=== PATIENT | female | born 1990 | race Caucasian/White ===

== ENCOUNTER 2024-03-22 07:04 | Emergency (ER) | payer BC ==
[~2024-03-22] VITALS: Ht 170.2 cm; Wt 75.7 kg
[2024-03-22] MEDS ORDERED: PANTOPRAZOLE 40 MG VIAL ONE (07:43)
[2024-03-22] MEDS ORDERED: ONDANSETRON HCL/PF 4 MG/2 ML VIAL ONE (07:44)
[2024-03-22] MEDS ORDERED: MORPHINE SULFATE INJ 4 MG/ML DISP.SYRIN ONE (07:44)
[2024-03-22] MEDS: IV NS 0.9% 1,000 ML BAG IV ONE (07:54)
[2024-03-22] MEDS: PANTOPRAZOLE 40 MG VIAL IV ONE (07:55)
[2024-03-22] MEDS: MORPHINE SULFATE INJ 2 MG/ML DISP.SYRIN IV ONE (07:55)
[2024-03-22] MEDS: ONDANSETRON HCL/PF 4 MG/2 ML VIAL IVP ONE (07:56)
[2024-03-22 07:57] LABS: BASOPHILS # (AUTO) 0.2 K/uL (0.0-0.2); BASOPHILS % (AUTO) 0.7 % (0.0-2.0); EOSINOPHILS % (AUTO) 0.1 % (0.0-6.0); HEMATOCRIT 44 % (33-45); HEMOGLOBIN 15.1 g/dL (11.5-14.8); LYMPHOCYTES # (AUTO) 2.7 K/uL (0.8-4.8); LYMPHOCYTES % (AUTO) 12.1 % (20.0-44.0); MEAN CORPUSCULAR HEMOGLOBIN 31 PG (26.0-33.0); MEAN CORPUSCULAR HGB CONC 34 g/dl (31.0-36.0); MEAN CORPUSCULAR VOLUME 89 fL (82-100); MONOCYTES # (AUTO) 2.2 K/uL (0.1-1.30); MONOCYTES % (AUTO) 9.9 % (2.0-12.0); NEUTROPHILS # (AUTO) 17.5 K/uL (1.8-8.9); NEUTROPHILS % (AUTO) 77.2 % (43.0-81.0); PLATELET COUNT (AUTO) 438 K/uL (150-450); RED BLOOD CELL COUNT(AUTO) 4.96 MIL/uL (4.0-5.2); RED CELL DISTRIBUTION WIDTH 13.1 % (11.5-15.0); WHITE BLOOD COUNT (AUTO) 22.6 K/uL (4.3-11.0)
[2024-03-22 08:09] LABS: ALBUMIN 4.5 g/dL (3.4-5.0); BILIRUBIN,DIRECT 0.2 mg/dL (0.0-0.2); BILIRUBIN,TOTAL 0.8 mg/dL (0.2-1.0); CALCIUM, SERUM 9.8 mg/dL (8.5-10.1); CREATININE 1.1 mg/dL (0.6-1.3); TOTAL PROTEIN, SERUM 8.8 g/dL (6.4-8.2)
[2024-03-22] MEDS ORDERED: diphenhydrAMINE HCL 50 MG/ML VIAL ONE (09:05)
[2024-03-22] MEDS ORDERED: METOCLOPRAMIDE HCL 10 MG/2 ML VIAL ONE (09:06)
[2024-03-22] MEDS: diphenhydrAMINE HCL 50 MG/ML VIAL IV ONE (09:20)
[2024-03-22] MEDS: METOCLOPRAMIDE HCL 10 MG/2 ML VIAL IV ONE (09:20)
[2024-03-22] MEDS ORDERED: IOHEXOL-300 100 ML VIAL IV ONE (09:23)
[2024-03-22] MEDS ORDERED: IV PREMIX D5 1/2NS + KCL 1,000 ML IV ONE (09:38)
[2024-03-22] MEDS ORDERED: NORE-213 PO (09:42)
[2024-03-22] MEDS ORDERED: QUET300T2 PO (09:42)
[2024-03-22] MEDS ORDERED: METH-649 PO (09:42)
[2024-03-22] MEDS ORDERED: TRAZ-182 PO (09:42)
[2024-03-22] MEDS ORDERED: ESCI20TA PO (09:42)
[2024-03-22] MEDS ORDERED: CLON0.5T PO (09:42)
[2024-03-22 09:45] LABS: AMPHETAMINE, URINE NEGATIVE (NEGATIVE); BARBITURATE, URINE NEGATIVE (NEGATIVE); BENZODIAZEPINE, URINE NEGATIVE (NEGATIVE); COCCAINE, URINE NEGATIVE (NEGATIVE); PHENCYCLIDINE SCREEN,URINE NEGATIVE (NEGATIVE)
[2024-03-22 09:50] LABS: CANNABINOID, URINE POSITIVE (NEGATIVE); OPIATE, URINE POSITIVE (NEGATIVE)
[2024-03-22] MEDS: PIPERACILLIN /TAZOBACTAM 3.375 G in IV D5W 50 ML IV ONE (09:50)
[2024-03-22 09:52] LABS: APPEARANCE,URINE SLIGHTLY CLOUDY (CLEAR); BILIRUBIN,URINE 1+ (NEGATIVE); BLOOD, URINE 1+ Ery/uL (NEGATIVE); COLOR,URINE YELLOW (YELLOW); KETONES,URINE 2+ mg/dL (NEGATIVE); LEUKOCYTE ESTERASE ,URINE NEGATIVE (NEGATIVE); NITRITE, URINE NEGATIVE (NEGATIVE); PROTEIN,URINE 2+ mg/dl (NEGATIVE); UGLUCOSE NEGATIVE (NEGATIVE); UROBILINOGEN,URINE 0.2 EU/dL (0.2)
[2024-03-22 09:55] LABS: BACTERIA,URINE Few /HPF (None Seen)
[2024-03-22 09:56] LABS: MUCUS,URINE Few /LPF (None Seen); SQUAMOUS EPITHELIAL CELL,UR Many /HPF (None Seen)
[2024-03-22 09:57] LABS: ADD URINE CULTURE NO
[2024-03-22] MEDS: IV PREMIX D5 1/2NS + KCL 1,000 ML IV ONE (10:08)
[2024-03-22] MEDS ORDERED: ACETAMINOPHEN 325 MG TABLET PO PRN (12:00)
[2024-03-22] MEDS ORDERED: MAGNESIUM HYDROXIDE 30 ML UDC PO PRN (12:00)
[2024-03-22] MEDS ORDERED: METHOCARBAMOL (750MG) 750 MG TABLET PO PRN (12:00)
[2024-03-22] MEDS ORDERED: MORPHINE SULFATE INJ 2 MG/ML DISP.SYRIN IV PRN (12:00)
[2024-03-22] MEDS ORDERED: MAG HYDROX/AL HYDROX/SIMETH 30 ML UDC PO PRN (12:00)
[2024-03-22] MEDS ORDERED: clonazePAM 0.5 MG TABLET PO PRN (12:00)
[2024-03-22] MEDS ORDERED: ONDANSETRON HCL/PF 4 MG/2 ML VIAL IVP PRN (12:00)
[2024-03-22] MEDS ORDERED: IV NS 0.9% 1,000 ML IV SCH (12:00)
[2024-03-22] MEDS ORDERED: Z GUARD REMEDY 4 OZ OINT TP PRN (12:00)
[2024-03-22 16:24] VITALS: BP 120/87; TEMP 98.4; O2SAT 99
[2024-03-22] MEDS ORDERED: TRAZODONE 50 MG TABLET PO SCH (22:00)
[2024-03-22] MEDS ORDERED: QUETIAPINE FUMARATE 100 MG TABLET PO SCH (22:00)
[2024-03-22] MEDS ORDERED: ESCITALOPRAM OXALATE (10 MG) 10 MG TABLET PO SCH (22:00)
[2024-03-23] MEDS ORDERED: PANTOPRAZOLE 40 MG VIAL IV SCH (09:00)
[2024-03-23] MEDS ORDERED: NORETHINDRONE E ESTRADIOL IRON PO SCH (09:00)
== END 2024-03-22 16:25 | disposition home or self-care (01) ==
LOC: ER 07:07
DX: K85.90 Acute pancreatitis without necrosis or infection, unspecified (principal); R11.2 Nausea with vomiting, unspecified; K22.6 Gastro-esophageal laceration-hemorrhage syndrome; E87.6 Hypokalemia; F17.200 Nicotine dependence, unspecified, uncomplicated; R19.7 Diarrhea, unspecified; R30.0 Dysuria; R94.31 Abnormal electrocardiogram [ECG] [EKG]; R10.2 Pelvic and perineal pain
CPT/HCPCS: 99285; 96375; 71250; 96365; 96366; 96361; 96368; 93005; 74176; 85025; 80048; 83690; 80076; 36415; 84702; 80307; 81001; J1200; J2270; J2765; J2405; J2543; J7060; J2470; J3490; Q9967

== ENCOUNTER 2024-11-06 08:18 | Inpatient (IN) | payer BC, MEDICAID ==
[~2024-11-06] VITALS: Ht 170.2 cm; Wt 70.8 kg
[~2024-11-06 08:18] MED LIST: CLON0.5T PO; ESCI20TA PO; METH-649 PO; NORE-213 PO; QUET300T2 PO; TRAZ-182 PO
[2024-11-06] MEDS ORDERED: ONDANSETRON HCL/PF 4 MG/2 ML VIAL ONE (08:44)
[2024-11-06] MEDS ORDERED: FAMOTIDINE/PF INJ 20 MG/2 ML VIAL IV ONE (08:45)
[2024-11-06] MEDS ORDERED: MORPHINE SULFATE INJ 4 MG/ML DISP.SYRIN ONE ×2 (08:45→11:33)
[2024-11-06] MEDS: IV NS 0.9% 1,000 ML BAG IV ONE ×2 (08:49→11:36)
[2024-11-06 08:50] LABS: BASOPHILS # (AUTO) 0.1 K/uL (0.0-0.2); BASOPHILS % (AUTO) 0.7 % (0.0-2.0); HEMATOCRIT 43 % (33-45); HEMOGLOBIN 15.1 g/dL (11.5-14.8); LYMPHOCYTES # (AUTO) 2.3 K/uL (0.8-4.8); LYMPHOCYTES % (AUTO) 13.4 % (20.0-44.0); MEAN CORPUSCULAR HEMOGLOBIN 31 PG (26.0-33.0); MEAN CORPUSCULAR HGB CONC 35 g/dl (31.0-36.0); MEAN CORPUSCULAR VOLUME 89 fL (82-100); MONOCYTES # (AUTO) 1.6 K/uL (0.1-1.30); MONOCYTES % (AUTO) 9.1 % (2.0-12.0); NEUTROPHILS # (AUTO) 13.1 K/uL (1.8-8.9); NEUTROPHILS % (AUTO) 76.8 % (43.0-81.0); PLATELET COUNT (AUTO) 436 K/uL (150-450); RED BLOOD CELL COUNT(AUTO) 4.87 MIL/uL (4.0-5.2); WHITE BLOOD COUNT (AUTO) 17.1 K/uL (4.3-11.0)
[2024-11-06] MEDS: MORPHINE SULFATE INJ 2 MG/ML DISP.SYRIN IV ONE ×2 (08:50→11:37)
[2024-11-06] MEDS: ONDANSETRON HCL/PF 4 MG/2 ML VIAL IVP ONE (08:51)
[2024-11-06] MEDS: FAMOTIDINE/PF INJ 20 MG/2 ML VIAL IV ONE (08:51)
[2024-11-06 09:03] LABS: ALBUMIN 4.7 g/dL (3.4-5.0); BILIRUBIN,DIRECT 0.2 mg/dL (0.0-0.2); BILIRUBIN,TOTAL 0.9 mg/dL (0.2-1.0); CALCIUM, SERUM 9.9 mg/dL (8.5-10.1); POTASSIUM 2.9 mmol/L (3.5-5.1); TOTAL PROTEIN, SERUM 8.7 g/dL (6.4-8.2)
[2024-11-06] MEDS ORDERED: LIDOCAINE VISCOUS 2% UD 15 ML UDC ONE (11:23)
[2024-11-06] MEDS ORDERED: MAG HYDROX/AL HYDROX/SIMETH 30 ML UDC ONE (11:23)
[2024-11-06] MEDS: MAG HYDROX/AL HYDROX/SIMETH 30 ML UDC PO ONE (11:37)
[2024-11-06] MEDS: LIDOCAINE VISCOUS 2% UD 15 ML UDC MM ONE (11:37)
[2024-11-06] MEDS ORDERED: Z GUARD REMEDY 4 OZ OINT TP PRN (13:30)
[2024-11-06] MEDS ORDERED: MAG HYDROX/AL HYDROX/SIMETH 30 ML UDC PO PRN (13:30)
[2024-11-06] MEDS ORDERED: MAGNESIUM HYDROXIDE 30 ML UDC PO PRN (13:30)
[2024-11-06] MEDS ORDERED: clonazePAM 0.5 MG TABLET PO PRN (13:30)
[2024-11-06] MEDS ORDERED: ACETAMINOPHEN 325 MG TABLET PO PRN (13:30)
[2024-11-06] MEDS: POTASSIUM CL. PREMIX PERIPHER. 50 ML IV SCH (13:57)
[2024-11-06] MEDS: IV NS 0.9% 1,000 ML IV SCH (13:58)
[2024-11-06 14:00] VITALS: BP 112/72; TEMP 98.4; O2SAT 98
[2024-11-06] MEDS: MORPHINE SULFATE INJ 4 MG/ML DISP.SYRIN IV PRN (14:01)
[2024-11-06] MEDS: ONDANSETRON HCL/PF 4 MG/2 ML VIAL IVP PRN ×2 (14:37→18:47)
[2024-11-06 16:00] VITALS: BP 119/67; TEMP 97.9; O2SAT 96
[2024-11-06 21:00] VITALS: BP 110/75; TEMP 97.9; O2SAT 99
[2024-11-06] MEDS: ESCITALOPRAM OXALATE (10 MG) 10 MG TABLET PO SCH (22:17)
[2024-11-06] MEDS: QUETIAPINE FUMARATE 100 MG TABLET PO SCH (22:17)
[2024-11-06] MEDS: TRAZODONE 50 MG TABLET PO SCH (22:17)
[2024-11-07 05:00] VITALS: BP 97/61; TEMP 97.9; O2SAT 99
[2024-11-07 06:47] LABS: BASOPHILS # (AUTO) 0.1 K/uL (0.0-0.2); BASOPHILS % (AUTO) 0.7 % (0.0-2.0); EOSINOPHILS # (AUTO) 0.2 K/uL (0.0-0.7); EOSINOPHILS % (AUTO) 1.6 % (0.0-6.0); HEMATOCRIT 35 % (33-45); HEMOGLOBIN 11.9 g/dL (11.5-14.8); LYMPHOCYTES # (AUTO) 5.2 K/uL (0.8-4.8); LYMPHOCYTES % (AUTO) 49.2 % (20.0-44.0); MEAN CORPUSCULAR HEMOGLOBIN 31 PG (26.0-33.0); MEAN CORPUSCULAR HGB CONC 34 g/dl (31.0-36.0); MEAN CORPUSCULAR VOLUME 90 fL (82-100); MONOCYTES # (AUTO) 0.9 K/uL (0.1-1.30); MONOCYTES % (AUTO) 8.9 % (2.0-12.0); NEUTROPHILS # (AUTO) 4.2 K/uL (1.8-8.9); NEUTROPHILS % (AUTO) 39.6 % (43.0-81.0); PLATELET COUNT (AUTO) 297 K/uL (150-450); RED BLOOD CELL COUNT(AUTO) 3.84 MIL/uL (4.0-5.2); WHITE BLOOD COUNT (AUTO) 10.5 K/uL (4.3-11.0)
[2024-11-07 07:13] LABS: CALCIUM, SERUM 8.1 mg/dL (8.5-10.1); CREATININE 0.7 mg/dL (0.6-1.3); PHOSPHORUS 3.2 mg/dL (2.5-4.9); POTASSIUM 3.3 mmol/L (3.5-5.1)
[2024-11-07 08:11] VITALS: BP 90/55; TEMP 97.7; O2SAT 96
[2024-11-07] MEDS: POTASSIUM CL. PREMIX PERIPHER. 50 ML IV SCH (09:01)
[2024-11-07 13:00] VITALS: BP 90/55; TEMP 97.7; O2SAT 96
[2024-11-07 16:27] VITALS: BP 92/55; TEMP 97.7; O2SAT 98
[2024-11-07 21:00] VITALS: BP 114/78; TEMP 98.1; O2SAT 97
[2024-11-08 04:00] VITALS: BP 125/71; TEMP 97.9; O2SAT 98
[2024-11-08 05:01] VITALS: BP 125/71; TEMP 97.9; O2SAT 98
[2024-11-08 06:50] LABS: BASOPHILS # (AUTO) 0.1 K/uL (0.0-0.2); BASOPHILS % (AUTO) 0.7 % (0.0-2.0); EOSINOPHILS # (AUTO) 0.3 K/uL (0.0-0.7); EOSINOPHILS % (AUTO) 2.9 % (0.0-6.0); HEMATOCRIT 36 % (33-45); LYMPHOCYTES # (AUTO) 4.8 K/uL (0.8-4.8); LYMPHOCYTES % (AUTO) 48.7 % (20.0-44.0); MEAN CORPUSCULAR HEMOGLOBIN 31 PG (26.0-33.0); MEAN CORPUSCULAR HGB CONC 34 g/dl (31.0-36.0); MEAN CORPUSCULAR VOLUME 91 fL (82-100); MONOCYTES # (AUTO) 0.8 K/uL (0.1-1.30); MONOCYTES % (AUTO) 7.8 % (2.0-12.0); NEUTROPHILS # (AUTO) 3.9 K/uL (1.8-8.9); NEUTROPHILS % (AUTO) 39.9 % (43.0-81.0); PLATELET COUNT (AUTO) 283 K/uL (150-450); RED BLOOD CELL COUNT(AUTO) 3.88 MIL/uL (4.0-5.2); WHITE BLOOD COUNT (AUTO) 9.8 K/uL (4.3-11.0)
[2024-11-08 07:33] LABS: CALCIUM, SERUM 8.1 mg/dL (8.5-10.1); CREATININE 0.7 mg/dL (0.6-1.3); POTASSIUM 3.7 mmol/L (3.5-5.1)
[2024-11-08 08:00] VITALS: BP 102/72; TEMP 97.9; O2SAT 98
== END 2024-11-08 15:45 | disposition home or self-care (01) | DRG 282 ==
LOC: ER 08:24 → MEDSG1 13:03
PROVIDERS: ADMIT Internal Medicine; ATTEND Internal Medicine
DX: K85.90 Acute pancreatitis without necrosis or infection, unspecified (principal); E87.20 Acidosis, unspecified; E87.1 Hypo-osmolality and hyponatremia; D72.829 Elevated white blood cell count, unspecified; E87.6 Hypokalemia; R11.2 Nausea with vomiting, unspecified; F10.21 Alcohol dependence, in remission; F12.90 Cannabis use, unspecified, uncomplicated
CPT/HCPCS: 36415; 80048-TC; 80076-TC; 83690-TC; 83735-TC; 84100-TC; 84702-TC; 85025-TC; A4223; G0378; J1308; J2270; J2405; J3480; J7030; J7050

== ENCOUNTER 2024-11-13 04:02 | Emergency (ER) | payer MEDICAID ==
[~2024-11-13] VITALS: Ht 170.2 cm; Wt 74.8 kg
[~2024-11-13 04:02] MED LIST changes: -METH-649 PO; -NORE-213 PO
[2024-11-13] MEDS ORDERED: HALOPERIDOL LACTATE INJ 5 MG/ML VIAL ONE (05:09)
[2024-11-13] MEDS: HALOPERIDOL LACTATE INJ 5 MG/ML VIAL IV ONE (05:10)
[2024-11-13] MEDS: IV NS 0.9% 1,000 ML BAG IV ONE (05:10)
[2024-11-13 06:26] LABS: PLATELET COUNT (AUTO) 313 K/uL (150-450); RED BLOOD CELL COUNT(AUTO) 4.07 MIL/uL (4.0-5.2); RED CELL DISTRIBUTION WIDTH 12.9 % (11.5-15.0); WHITE BLOOD COUNT (AUTO) 11.8 K/uL (4.3-11.0)
[2024-11-13 06:30] LABS: CALCIUM, SERUM 8.2 mg/dL (8.5-10.1); CREATININE 0.7 mg/dL (0.6-1.3); SODIUM SERUM 136.0 mmol/L (136-145); UREA NITROGEN, BLOOD 5.0 mg/dL (7-18)
[2024-11-13 06:36] LABS: ASPARTATE AMINOTRANSFERASE 20.0 U/L (15-37); TOTAL PROTEIN, SERUM 6.3 g/dL (6.4-8.2)
[2024-11-13 06:39] LABS: AMPHETAMINE, URINE NEGATIVE (NEGATIVE); BARBITURATE, URINE NEGATIVE (NEGATIVE); COCCAINE, URINE NEGATIVE (NEGATIVE)
[2024-11-13 06:40] LABS: BENZODIAZEPINE, URINE POSITIVE (NEGATIVE); CANNABINOID, URINE POSITIVE (NEGATIVE); OPIATE, URINE POSITIVE (NEGATIVE)
[2024-11-13 06:50] LABS: APPEARANCE,URINE CLOUDY (CLEAR); BLOOD, URINE NEGATIVE Ery/uL (NEGATIVE); LEUKOCYTE ESTERASE ,URINE NEGATIVE (NEGATIVE); NITRITE, URINE NEGATIVE (NEGATIVE); UGLUCOSE NEGATIVE (NEGATIVE)
[2024-11-13 06:54] LABS: ADD URINE CULTURE NO; SQUAMOUS EPITHELIAL CELL,UR Moderate /HPF (None Seen)
[2024-11-13] MEDS ORDERED: ONDA4TAB5 PO (07:26)
[2024-11-13 07:52] VITALS: BP 128/84; TEMP 97.7; O2SAT 98
== END 2024-11-13 07:53 | disposition home or self-care (01) ==
LOC: ER 04:06
DX: R11.10 Vomiting, unspecified (principal); R10.13 Epigastric pain; F17.200 Nicotine dependence, unspecified, uncomplicated; Z87.19 Personal history of other diseases of the digestive system; Z60.2 Problems related to living alone; Z79.899 Other long term (current) drug therapy
CPT/HCPCS: 99285; 96374; 71045; 96361; 93005; 85025; 80048; 83690; 80076; 36415; 80307; 81001; J1630